=== PATIENT | female | born 1995 | race American Indian/Alaskan Native ===

== ENCOUNTER 2021-06-10 12:49 | Emergency (ER) | payer MEDICAID ==
--- NOTE | 2021-06-10 13:43 | Emergency Department Report ---
ED General Adult HPI - General Chief complaint: Medical Clearance Stated complaint: BREAST DISCHARGE X 1 DAY Time Seen by Provider: 06/10/21 13:03 Source: patient Mode of arrival: Ambulatory Limitations: No Limitations - History of Present Illness Initial comments: 26-year-old -[place] female patient presents with complaints of bilateral nipple discharge x last night and intermittent abdominal pains and nausea x2 weeks. She states the pain is in her upper abdomen and denies any vomiting, diarrhea, constipation, fever/chills/sweats, cough, chest pain, or shortness of breath. No loss of taste or smell per patient. No dysuria/hematuria/urinary frequency, vaginal bleeding, vaginal discharge, or dyspareunia per patient. Patient states she had 2 - home test. She denies any past medical history. No abdominal pain is noted at this time per patient. - Related Data Allergies Allergy/AdvReac Type Severity Reaction Status Date / Time No Known Allergies Allergy Unverified 06/10/21 12:53 ED Review of Systems ROS: Stated complaint: BREAST DISCHARGE X 1 DAY Other details as noted in HPI Constitutional: denies: chills, fever, malaise Respiratory: denies: cough, shortness of breath Cardiovascular: denies: chest pain Gastrointestinal: abdominal pain, nausea. denies: vomiting, diarrhea Genitourinary: denies: urgency, dysuria, frequency, hematuria, discharge, abnormal menses, dyspareunia Musculoskeletal: denies: back pain Skin: denies: rash, lesions, change in color Hematological/Lymphatic: denies: swollen glands ED Past Medical Hx - Past Medical History Previous Medical History?: No - Surgical History Past Surgical History?: No ED Physical Exam - General Limitations: No Limitations General appearance: alert, in no apparent distress - Head Head exam: Present: atraumatic, normocephalic - Eye Eye exam: Present: normal appearance. Absent: scleral icterus - Neck Neck exam: Present: normal inspection - Respiratory Respiratory exam: Present: normal lung sounds bilaterally, other (No erythema, swelling, or masses noted on breast exam; there is mild expression of a white thick discharge from the right nipple; no tenderness to palpation noted bilaterally). Absent: respiratory distress, chest wall tenderness - Cardiovascular Cardiovascular Exam: Present: regular rate, normal rhythm - GI/Abdominal GI/Abdominal exam: Present: soft, normal bowel sounds. Absent: distended, tenderness, guarding, rebound, rigid - Neurological Exam Neurological exam: Present: alert, oriented X3 - Psychiatric Psychiatric exam: Present: normal affect, normal mood - Skin Skin exam: Present: warm, dry, intact, normal color. Absent: rash ED Course Vital Signs 06/10/21 12:57 Temperature 98.5 F Pulse Rate 63 Respiratory 18 Rate Blood Pressure 133/83 O2 Sat by Pulse 99 Oximetry ED Medical Decision Making - Lab Data Result diagrams: 06/10/21 14:41 06/10/21 14:41 - Medical Decision Making 26-year-old -[place] female patient presents with complaints of bilateral nipple discharge x last night and intermittent abdominal pains and nausea x2 weeks. She states the pain is in her upper abdomen and denies any vomiting, diarrhea, constipation, fever/chills/sweats, cough, chest pain, or shortness of breath. No loss of taste or smell per patient. No dysuria/hematuria/urinary frequency, vaginal bleeding, vaginal discharge, or d yspareunia per patient. Patient states she had 2 - home test. She denies any past medical history. No abdominal pain is noted at this time per patient. No acute abnormalities noted on labs. Patient informed to follow-up with [facility] for further evaluation and mammogram. She is otherwise well-appearing, her vitals are within normal limits, she is stable for discharge home. Discussed in detail signs and symptoms that should prompt immediate return to the ED with patient who verbalizes understanding. Critical care attestation.: If time is entered above; I have spent that time in minutes in the direct care of this critically ill patient, excluding procedure time. ED Disposition Clinical Impression: Nipple discharge, Intermittent abdominal pain Disposition: HOME / SELF CARE / HOMELESS Is pt being admited?: No Condition: Stable Instructions: Abdominal Pain, Adult, Galactorrhea Referrals: [facility] [Provider Group] - 3-5 Days ROSI BATES MD [Staff Physician] - 3-5 Days Forms: Work/School Release Form(ED)
[2021-06-10 14:55] LABS: Basophils # (Auto) 0.1 K/mm3 (0.0-0.1); Basophils % (Auto) 0.8 % (0.0-1.8); Eosinophils # (Auto) 0.4 K/mm3 (0.0-0.4); Eosinophils % (Auto) 6.1 % (0.0-4.3); Hematocrit 38.4 % (30.3-42.9); Hemoglobin 12.5 gm/dl (10.1-14.3); Lymphocytes # (Auto) 1.9 K/mm3 (1.2-5.4); Mean Corpuscular HGB Conc 33 % (30-34); Mean Corpuscular Volume 100 fl (79-97); Monocytes # (Auto) 0.4 K/mm3 (0.0-0.8); Monocytes % (Auto) 6.6 % (0.0-7.3); Platelet Count 257 K/mm3 (140-440); Red Blood Count 3.85 M/mm3 (3.65-5.03); Red Cell Distribution Width 13.4 % (13.2-15.2)
[2021-06-10 15:15] LABS: Alanine Aminotransferase 15 units/L (7-56); Albumin 4.2 g/dL (3.9-5); Blood Urea Nitrogen 9 mg/dL (7-17); Calcium 8.9 mg/dL (8.4-10.2); Hemolysis Index 11
[2021-06-10 15:17] LABS: BUN/Creatinine Ratio 15
[2021-06-10 17:22] VITALS: BP 136/88
== END 2021-06-10 17:00 | disposition home or self-care (01) ==
LOC: ED 12:49
DX: R10.10 Upper abdominal pain, unspecified (principal); R11.0 Nausea; N64.52 Nipple discharge
CPT/HCPCS: 36415; 80053; 84702; 85025; 99283